=== PATIENT | female | born 1955 | race Caucasian/White ===

== ENCOUNTER 2017-11-10 15:16 | Emergency (ER) | payer OTHER ==
[~2017-11-10] VITALS: Ht 167.6 cm; Wt 106.6 kg
[2017-11-10] MEDS ORDERED: XANAX1 MG PO (15:35)
[2017-11-10] MEDS ORDERED: NEPHROCAPS SOFT1 CAP PO (15:35)
[2017-11-10] MEDS ORDERED: VITAMINC500 PO (15:35)
[2017-11-10] MEDS ORDERED: PROZAC20 MG PO (15:35)
[2017-11-10] MEDS ORDERED: VITAMIN D1000 UNI1 PO (15:36)
[2017-11-10] MEDS ORDERED: VITAMIN E400 UNIT PO (15:36)
[2017-11-10] MEDS ORDERED: TURMERIC500 M2 PO (15:36)
[2017-11-10] MEDS ORDERED: MEDROLDOSEPACK PO (16:12)
[2017-11-10] MEDS ORDERED: ZANAFLEX4 MG PO (16:12)
[2017-11-10] MEDS ORDERED: IBU600 MG PO (16:12)
[2017-11-10 16:37] VITALS: BP 157/93
== END 2017-11-10 16:40 | disposition home or self-care (01) ==
LOC: M.ERS 15:16
DX: M54.12 Radiculopathy, cervical region (principal); Z96.659 Presence of unspecified artificial knee joint; Z85.3 Personal history of malignant neoplasm of breast; Z88.0 Allergy status to penicillin